=== PATIENT | female | born 1970 | race Caucasian/White ===

== ENCOUNTER → 2019-08-17 | Outpatient (CLI) | payer OTHER ==
[2019-08-17 10:06] LABS: HCT 44.2 % (34.0-46.0); HGB 14.5 gm/dL (11.4-16.0); MCH 29.9 pg (25.0-35.0); MCHC 32.9 g/dL (31.0-37.0); Mean Platelet Volume 8.6; Platelet Count 258 k/uL (150-450); RBC 4.86 m/uL (3.80-5.40); RDW 12.7 % (11.5-15.5); WBC 7.6 k/uL (3.8-10.6)
[2019-08-17 10:14] LABS: INR 0.9 (<1.2); Partial Thromboplastin Time 24.5 sec (22.0-30.0); Prothrombin Time 9.9 sec (9.0-12.0)
[2019-08-17 10:20] LABS: ALT 38 U/L (4-34); AST 30 U/L (14-36); African American GFR (CKD) >90 (>60 ml/min/1.73 sqM); Albumin 4.6 g/dL (3.5-5.0); Alkaline Phosphatase 99 U/L (38-126); Anion Gap 9 mmol/L; Blood Urea Nitrogen 15 mg/dL (7-17); Calcium 10.9 mg/dL (8.4-10.2); Carbon Dioxide 28 mmol/L (22-30); Chloride 103 mmol/L (98-107); Glucose 84 mg/dL (74-99); Non-African American GFR(CKD) 83 (>60 ml/min/1.73 sqM); Potassium 4.5 mmol/L (3.5-5.1); Sodium 140 mmol/L (137-145); Total Bilirubin 0.6 mg/dL (0.2-1.3); Total Protein 7.7 g/dL (6.3-8.2)
[2019-08-17 10:44] LABS: Appearance,Urine Clear (Clear); Bilirubin,Urine Negative (Negative); Blood,Urine Negative (Negative); Color,Urine Light Yellow; Glucose,Urine (UA) Negative (Negative); Ketones,Urine Negative (Negative); Leukocyte Esterase,Urine Negative (Negative); Nitrite,Urine Negative (Negative); Protein,Urine Negative (Negative); Specific Gravity,Urine 1.006 (1.001-1.035); Urobilinogen,Urine <2.0 mg/dL (<2.0)
== END | disposition home or self-care (01) ==
LOC: LABWHC1 08:53
PROVIDERS: ATTEND Orthopaedic Surgery
DX: Z01.818 Encounter for other preprocedural examination (principal); Z01.812 Encounter for preprocedural laboratory examination
CPT/HCPCS: 36415; 80053; 81003; 85027; 85610; 85730; 87070; 93005

== ENCOUNTER 2019-08-25 05:32 | Day surgery (SDC) | payer OTHER ==
[2019-08-18 12:04] VITALS: BMI 29.1
[~2019-08-25 05:32] MED LIST: ACETAMINOPHEN TAB 500 MG TAB PO ONE; GABAPENTIN 300 MG CAP PO ONE; MELOXICAM 7.5 MG TAB PO ONE; TRANEXAMIC ACID 1,000 MG in SODIUM CHLORIDE 0.9% 100 ML IVPB ONE
[2019-08-25] MEDS ORDERED: ROPIVACAINE 246.25 MG, EPINEPHrine 0.5 MG, KETOROLAC 30 MG, cloNIDine HCL/PF 80 MCG, WA... MISCELLANE ONE ×5 (06:00)
[2019-08-25] MEDS ORDERED: ONDANSETRON 4 MG/2 ML VIAL IVP ONE (06:20)
[2019-08-25] MEDS ORDERED: LACTATED RINGERS 1,000 ML IV ONE ×2 (06:20→08:00)
[2019-08-25] MEDS ORDERED: SCOPOLAMINE 1.5MG/72HR PATCH TRANSDERM ONE (06:20)
[2019-08-25] MEDS ORDERED: DEXAMETHASONE SOD PHOSPHATE 10 MG/ML 1 ML VIAL IV ONE (06:20)
[2019-08-25] MEDS ORDERED: LIDOCAINE 1% 20 ML VIAL (10MG/ML) FOR IV START INTRADERMA ONE (06:20)
[2019-08-25] MEDS ORDERED: NALOXONE 0.4 MG/ML 1 ML VIAL IV PRN (06:53)
[2019-08-25] MEDS ORDERED: HYDROmorphone 1 MG/ML 1 ML SYRINGE IVP PRN (06:53)
[2019-08-25] MEDS ORDERED: MAGNESIUM HYDROXIDE 2,400 MG/10 ML CUP PO PRN (06:53)
[2019-08-25] MEDS ORDERED: HYDROmorphone 0.5 MG/0.5 ML SYRINGE IVP PRN ×2 (06:53)
[2019-08-25] MEDS ORDERED: ONDANSETRON 4 MG/2 ML VIAL IVP PRN (06:53)
[2019-08-25] MEDS ORDERED: HYDROcodone/APAP 5-325MG 1 EACH TAB PO PRN (06:53)
[2019-08-25] MEDS ORDERED: DIAZEPAM 5 MG TAB PO PRN (06:53)
[2019-08-25] MEDS ORDERED: HEPARIN SODIUM,PORCINE 10,000 UNIT/ML 1 ML VIAL ONE (06:54)
[2019-08-25] MEDS ORDERED: ePHEDrine SULFATE/0.9% NACL/PF 50 MG/5 ML SYRINGE IV ONE (06:54)
[2019-08-25] MEDS ORDERED: PROPOFOL 10 MG/ML 20 ML VIAL IV ONE (06:54)
[2019-08-25] MEDS ORDERED: SODIUM CHLORIDE 0.9% IRRIG 1,000 ML BTL IRRIGATION ONE (06:54)
[2019-08-25] MEDS ORDERED: SODIUM CHLORIDE 0.9% 100 ML BAG ONE (06:54)
[2019-08-25] MEDS ORDERED: MIDAZOLAM 2 MG/2 ML VIAL ONE (06:54)
[2019-08-25] MEDS ORDERED: TRANEXAMIC ACID 1,000 MG/10 ML VIAL ONE (06:54)
[2019-08-25] MEDS ORDERED: fentaNYL (PF) 50 MCG/ML 2 ML AMP ONE (06:54)
[2019-08-25] MEDS ORDERED: MIDAZOLAM 2 MG/2 ML VIAL IV ONE (07:00)
[2019-08-25] MEDS ORDERED: ceFAZolin 3,000 MG in SODIUM CHLORIDE 0.9% IRRIGATIO 3,000 ML IRRIGATION ONE (07:35)
--- NOTE | 2019-08-25 08:28 | P.OP ---
Date of Procedure: 08/25/19 Preoperative Diagnosis: Severe osteoarthritis left hip Postoperative Diagnosis: Severe osteoarthritis left hip Procedure(s) Performed: Left total hip arthroplasty with a direct anterior approach Implants: Pearl and nephew Polarstem size 3 standard Pearl & Nephew R3, 3 hole acetabular shell, 52 mm Pearl & Nephew reflection 6.5 mm cancellus screw, 20 mm 2 Pearl & Nephew R3, XLPE 20 acetabular liner Pearl & Nephew Oxinium femoral head 36 m, +0 All components were press-fit. The articulation is Oxinium on polyethylene. Anesthesia: spinal Surgeon: Howard Guzman Machine Tool Operator #1: Sharon Lemons Estimated Blood Loss (ml): 150 Pathology: other (Femoral head) Condition: stable Disposition: PACU Indications for Procedure: After failure of conservative treatment we discussed the surgical and nonsurgical treatment options at length. Patient wishes to proceed with a total hip arthroplasty with a direct anterior approach. Complications specific to this procedure were discussed at length, including but not limited to infection, leg length discrepancy, dislocation, and nerve injury. Patient is aware of all these complications and informed consent was obtained Operative Findings: The operative findings are consistent with severe osteoarthritis of the left hip Description of Procedure: Patient was seen and evaluated in the preoperative area, consent was reviewed, and the surgical site was marked with a skin marker. Patient was then brought to the operating room and given prophylactic antibiotics intravenously. 1 g of Tranexamic acid was also given. A spinal anesthetic was administered by the anesthesia department. The patient was then placed on the [place] table with the bony prominences well-padded. The hip area was then prepped and draped in usual sterile fashion. A universal timeout was then performed, which confirmed the patient's name, surgical site, ALLERGIES, and procedure being performed. Next the incision site was located at 1 cm distal and 1 cm lateral to the anterior superior iliac spine. The skin and subcutaneous tissues were sharply incised. Incision was carefully dissected down to the fascia overlying the tensor fascia kurt muscle. This fascia was then incised in line with the incision. Next, using blunt finger dissection, the tensor fascia kurt muscle was dissected off its investing fascia. The muscle was then carefully retracted laterally with a cobra retractor over the lateral neck of the femur. Next, the circumflex vessels were identified and cauterized using the AquaMantis device. The anterior hip capsule was then exposed. The capsule was then opened and an inverted T fashion. Cobra retractors were then placed intracapsularly. The proximal femur was then visualized. The femoral neck was then osteotomized appropriate level above the lesser trochanter. Small amount of traction was placed with the [place] table. A small wedge of bone was then removed from the remaining femoral head. Next, using a corkscrew femoral head was easily removed from the acetabulum. On gross visual inspection, the femoral head had complete loss of articular cartilage in multiple periarticular osteophytes. Attention was then turned to the acetabulum. the acetabulum was exposed and any remaining labrum was excised. Sequential reaming of the acetabulum was performed using fluoroscopic guidance. When the appropriate size was reached, a trial was then placed. The position and fit of the trial was checked with fluoroscopy. The trial was then removed. Then, using fluoroscopic guidance, the final implant was impacted at 20 of anteversion and 40 of abduction, and fully seated in the acetabulum. 2 screws were then placed in the acetabulum. Again fluoroscopy was used to check position of the screws. Next, the liner was then impacted, with a 20 elevated liner located in the anterior superior quadrant. Component locking was confirmed. Attention was then directed to the femur. With the aid of the [place] table, the femur was externally rotated to approximately 130, extended, and abducted under the opposite leg. A side hook was then placed under the proximal femur, and the side hook elevator was used to elevate the proximal femur. Retractors were then placed. A capsular release was performed, as well as a release of the conjoined tendon, which afforded excellent visualization of the proximal femur. Next, a box osteotome was used to lateralize the proximal femur. A deckhand engineer was then used to locate the femoral canal. Sequential broaching was then performed with appropriate size which afforded excellent fixation in the proximal femur. A trial was then placed with appropriate head and neck, and the hip was gently reduced with the aid of the [place] table. Fluoroscopy was then used to check position of the components, as well as to ensure equal leg lengths. The hip was then gently dislocated and the trials were then removed. Final implants were then impacted and the hip was again reduced. Final fluoroscopic x-rays confirmed that the components were in anatomic position, as well as equal leg lengths. The hip was also taken through range of motion, and found to be s table. The hip was then copiously irrigated with antibiotic solution with pulsatile lavage. The hip was then irrigated with Irrisept solution. The soft tissues were then injected with a ropivacaine solution, which consisted of 246.25 mg of ropivacaine, 0.5 mg of epinephrine, 30 mg of Toradol, 80 g of clonidine, and 48.45 mL of sterile water, for a total of 100 mL of fluid injected. A second d ose of 1 g of Tranexamic acid was also given. the fascia was then closed with 2-0 strata fix suture. The subcutaneous tissue was closed with 3-0 Vicryl. The subcuticular tissue was closed with 3-0 strata fix suture. The skin was then closed with Dermabond glue and a sterile silver dressing. The patient was then transferred to the recovery room in stable condition. The equity sales assistant BRITTANY Valadez was required due to the complexity of surgery, and the need for skilled surgical oncologist for positioning, draping, exposure, retraction, and closure of the wound.
--- NOTE | 2019-08-25 08:48 | FL ---
Fluoroscopy HISTORY: Anterior hip replacement 33 seconds fluoroscopy time supplied to the referring clinician. 2 intraoperative C-arm images docum ent the procedure. See dictated report from orthopedic surgery.
--- NOTE | 2019-08-25 08:50 | XR ---
Limited left hip HISTORY: Anterior hip placement 2 intraoperative C-arm images document the procedure.
--- NOTE | 2019-08-25 09:19 | XR ---
Limited left hip HISTORY: Status post left hip arthroplasty Single frontal view of the left hip Patient is status post left hip arthroplasty. There is anatomic alignment. Lucency is present in the soft tissues. IMPRESSION: Orthopedic follow-up.
[2019-08-25] MEDS: hydrOXYzine PAMOATE 25 MG CAP PO PRN (10:34)
[2019-08-25] MEDS: HYDROcodone/APAP 5-325MG 1 EACH TAB PO PRN ×2 (10:34→20:09)
[2019-08-25] MEDS: SODIUM CHLORIDE 0.9% 1,000 ML IV SCH ×2 (18:12→20:10)
[2019-08-25] MEDS: ASPIRIN 325 MG TAB PO SCH (20:09)
[2019-08-25] MEDS ORDERED: SENNOSIDES-DOCUSATE SODIUM 1 EACH TAB PO SCH (21:00)
--- NOTE | 2019-08-25 22:01 | P.CONS ---
History of Present Illness - Reason for Consult Consult date: 08/25/19 Medical management of hypertension and other medical problems - Chief Complaint Admitted for left total arthroplasty - History of Present Illness Patient is a 49-year-old female with a known history of hypertension, osteoarthritis and history of renal stones removed on the right side and anxiety and also history of smoking was admitted to the hospital for elective left total hip arthroplasty due to worsening pain and failed conservative management. Patient says that her pain is better controlled with medications. No complaints of chest pain or shortness of breath. No nausea vomiting or abdominal pain. Patient is currently hypotensive likely due to narcotic pain medication use. Blood pressure medications will be held at this time. Patient has been afebrile. No headache or dizziness or lightheadedness. Review of Systems Constitutional: Patient denies any fever or chills . No generalized weakness or weight loss. Abdomen: Patient denied nausea vomiting and diarrhea and abdominal pain. Cardiovascular: Patient denies any chest pain or short of breath no palpitations. Respiratory: patient denied any cough is from production. No shortness of breath Neurologic: Patient denied any numbness or tingling headache. Musculoskeletal: Patient denies any complaints of joint swelling or deformity. Skin: Negative Psychiatric: Negative Endocrine: No heat or cold intolerance. No recent weight gain. Genitourinary: No dysuria or hematuria. All other 14 point ROS negative except the above Past Medical History Past Medical History: Hypertension, Osteoarthritis (OA) Additional Past Medical History / Comment(s): KIDNEY STONES History of Any Multi-Drug Resistant Organisms: None Reported Past Surgical History: Tubal Ligation Additional Past Surgical History / Comment(s): LAPAROSCOPY X 2. KIDNEY STONES REMOVED RT SIDE. LT SALIVA GLAND REMOVED Past Anesthesia/Blood Transfusion Reactions: Postoperative Nausea & Vomiting (PONV) Past Psychological History: Anxiety Additional Psychological History / Comment(s): PAST TREATMENT-NO PROBLEMS AT THIS TIME Smoking Status: Former smoker Past Alcohol Use History: Occasional Additional Past Alcohol Use History / Comment(s): QUIT SMOKING 2004 Past Drug Use History: None Reported - Past Family History Mother Family Medical History: Diabetes Mellitus, Thyroid Disorder Father Family Medical History: Coronary Artery Disease (CAD) Medications and Allergies Home Medications Medication Instructions Recorded Confirmed Type Acetaminophen [Tylenol Arthritis] 1,300 mg PO DAILY 08/18/19 08/18/19 History Atenolol [Tenormin] 50 mg PO DAILY 08/18/19 08/18/19 History Aspirin 325 mg PO BID #60 tab 08/25/19 Rx Sennosides [Senokot] 2 tab PO DAILY PRN #60 tablet 08/25/19 Rx Allergies Allergy/AdvReac Type Severity Reaction Status Date / Time No Known Allergies Allergy Verified 08/18/19 11:58 Physical Exam Vitals: Vital Signs Temp Pulse Resp BP Pulse Ox 08/25/19 09:07 95 16 109/65 96 08/25/19 08:50 66 18 108/70 97 08/25/19 08:37 98.7 F 70 16 98/74 96 08/25/19 06:20 97.7 F 62 16 136/87 98 Intake and Output 08/24/19 08/25/19 08/25/19 22:59 06:59 14:59 Intake Total 200 1151 Output Total 150 Balance 200 1001 Intake: IV 200 1151 Output: Estimated Blood Loss 150 Other: Weight 84.3 kg 84.3 kg PHYSICAL EXAMINATION: Patient is lying in the bed comfortably, no acute distress, awake alert and oriented.. HEENT: Normocephalic. Neck is supple. Pupils reactive. Nostrils clear. Oral cavity is moist. Ears reveal no drainage. Neck reveals no JVD, carotid bruits, or thyromegaly. CHEST EXAMINATION: Trachea is central. Symmetrical expansion. Bibasilar diminished air entry. Lung lynch clear to auscultation and percussion. CARDIAC: Normal S1, S2 with no gallops. No murmurs ABDOMEN: Soft. Bowel sounds normal. No organomegaly. No abdominal bruits. Extremities: reveal no edema. No clubbing or cyanosis Neurologically awake, alert, oriented x3 with well-coordinated movements. No focal deficits noted Skin: No rash or skin lesions. Psychiatric: Coperative. Nonsuicidal Musculoskeletal: No joint swelling or deformity. Normal range of motion. Left hip surgical site is intact. Assessment and Plan Assessment: Left total hip of the plasty with direct anterior approach. Postoperative day 0 Hypertension. Patient does take atenolol at home. Currently on hold due to hypotension Osteoarthritis History of renal stones on the right side removed Anxiety Previous history of smoking DVT prophylaxis Plan: Patient will be continued on current pain management and try to limit narcotic pain medications. Continue with incentive spirometry and encourage ambulation and PT OT. Blood pressure medications will be held today. Otherwise continue the home medications and will follow up closely. Further recommendations based on the clinical course. Time with Patient: Greater than 30
[2019-08-26] MEDS: hydrOXYzine PAMOATE 25 MG CAP PO PRN ×2 (02:07→07:19)
[2019-08-26] MEDS: HYDROcodone/APAP 5-325MG 1 EACH TAB PO PRN ×2 (02:07→07:18)
[2019-08-26 07:14] VITALS: BP 103/70; PULSE 62; RESP 16; TEMP 97.6
[2019-08-26] MEDS: ASPIRIN 325 MG TAB PO SCH (07:19)
[2019-08-26 07:40] LABS: Basophils % (A) 0 %; Eosinophils % (A) 0 %; HCT 32.7 % (34.0-46.0); Lymphocytes # (A) 1.7 k/uL (1.0-4.8); Lymphocytes % (A) 15 %; MCH 31.2 pg (25.0-35.0); MCHC 34.1 g/dL (31.0-37.0); MCV 91.5 fL (80.0-100.0); Mean Platelet Volume 9.3; Monocytes # (A) 0.5 k/uL (0-1.0); Monocytes % (A) 5 %; Neutrophils # (A) 8.5 k/uL (1.3-7.7); Neutrophils % (A) 78 %; Platelet Count 190 k/uL (150-450); RBC 3.58 m/uL (3.80-5.40); RDW 12.6 % (11.5-15.5); WBC 10.9 k/uL (3.8-10.6)
[2019-08-26 07:45] LABS: HGB 11.1 gm/dL (11.4-16.0)
[2019-08-26] MEDS ORDERED: HYDROcodone/APAP 7.5-325MG 1 EACH TAB PO PRN ×2 (08:28)
[2019-08-26] MEDS ORDERED: MELOXICAM 7.5 MG TAB PO SCH (09:00)
[2019-08-26] MEDS ORDERED: ATENOLOL 50 MG TAB PO SCH (09:00)
--- NOTE | 2019-08-26 09:35 | P.DS ---
Providers Expected date of discharge: 08/26/19 Attending physician: Howard Guzman Consults: 08/25/19 06:53 Consult Physician Routine Consulting Provider: Casey Myrick Consult Reason/Comments: medical management Do you want consulting provider notified?: Yes Primary care physician: Deny Salguero MD - Discharge Diagnosis(es) (1) Osteoarthritis of left hip Current Visit: Yes Status: Acute (2) Status post total hip replacement, left Current Visit: Yes Status: Acute Hospital Course: This is a 49-year-old female with known history of degenerative arthritis of the left hip. The patient presents for evaluation. After discussion and consideration patient elects to proceed with total hip arthroplasty. The patient is seen preoperatively by her primary care physician and cleared for surgery. Patient is admitted to [facility] on 08/25/2019 for total hip arthroplasty. The procedures performed without complication or sequelae. The patient is doing well postoperatively. Labs and vital signs are stable on day of discharge. On day of discharge patient's hip incision is healing well. There is minimal erythema. There is no drainage noted at this time. There is minimal soft tissue swelling to the hip and thigh. Patient has full foot and ankle motion without difficulty or pain. Neurovascular status to the left lower extremity is intact. Patient is discharged to home in good condition. Please see med rec for accurate list of home medications. Plan - Discharge Summary Discharge Rx Participant: Yes New Discharge Prescriptions: New Aspirin 325 mg PO BID #60 tab Sennosides [Senokot] 2 tab PO DAILY PRN #60 tablet PRN Reason: Constipation HYDROcodone/APAP 7.5-325MG [[place] 7.5-325] 1 - 2 tab PO Q4-6H PRN #50 tab PRN Reason: Pain No Action Atenolol [Tenormin] 50 mg PO DAILY Acetaminophen [Tylenol Arthritis] 1,300 mg PO DAILY Discharge Medication List Acetaminophen [Tylenol Arthritis] 1,300 mg PO DAILY 08/18/19 [History] Atenolol [Tenormin] 50 mg PO DAILY 08/18/19 [History] Aspirin 325 mg PO BID #60 tab 08/25/19 [Rx] Sennosides [Senokot] 2 tab PO DAILY PRN #60 tablet 08/25/19 [Rx] HYDROcodone/APAP 7.5-325MG [[place] 7.5-325] 1 - 2 tab PO Q4-6H PRN #50 tab 08/26/19 [Rx] Follow up Appointment(s)/Referral(s): Deny Salguero MD [Primary Care Provider] - 1 Week Howard Guzman DO [Doctor of Osteopathic Medicine] - 09/09/19 10:20 am Activity/Diet/Wound Care/Special Instructions: Weightbearing as tolerated with walker. Leave dressing intact. Dressing may be removed by home care nurse or by patient in 10 days. May shower with dressing on. Recommend use of compression stockings daily for at least 2 weeks during the day to help prevent swelling and blood clots. May remove at night before sleeping. Please follow-up with [facility] in 2 weeks and call with any questions or concerns, .
[2019-08-26 09:45] LABS: African American GFR (CKD) >90 (>60 ml/min/1.73 sqM); Anion Gap 5 mmol/L; Blood Urea Nitrogen 14 mg/dL (7-17); Calcium 9.3 mg/dL (8.4-10.2); Carbon Dioxide 24 mmol/L (22-30); Chloride 111 mmol/L (98-107); Glucose 102 mg/dL (74-99); Non-African American GFR(CKD) >90 (>60 ml/min/1.73 sqM); Potassium 4.9 mmol/L (3.5-5.1); Sodium 140 mmol/L (137-145)
--- NOTE | 2019-08-26 14:18 | P.PN ---
Subjective Progress Note Date: 08/26/19 Principal diagnosis: Patient is a 49-year-old female with a known history of hypertension, osteoarthritis and history of renal stones removed on the right side and anxiety and also history of smoking was admitted to the hospital for elective left total hip arthroplasty due to worsening pain and failed conservative management. Patient says that her pain is better controlled with medications. No complaints of chest pain or shortness of breath. No nausea vomiting or abdominal pain. Patient is currently hypotensive likely due to narcotic pain medication use. Blood pressure medications will be held at this time. Patient has been afebrile. No headache or dizziness or lightheadedness. 08/26/2019 Patient is sitting up in the chair with bilateral legs elevated and appears to be in no acute distress. Patient underwent left hip arthroplasty with Dr. Guzman and tolerated well. Patient's surgical site dressing is dry and intact with no increased erythema or swelling noted. Patient has been working with physical therapy and has been up in the room and to the bathroom with no difficulties. Currently working on pain management with nursing staff at this time. Patient denies any chest pain, shortness of breath, or palpitations. Patient is afebrile. Patient denies any nausea or vomiting and has been tolerating diet. Patient's blood pressure medications have been resumed as she normally takes atenolol daily. Vital signs have been within normal limits. Caesar tankgracy is anticipated for discharge today per primary service. Objective - Vital Signs Vital signs: Vital Signs Temp 97.6 F 08/26/19 07:00 Pulse 62 08/26/19 07:00 Resp 16 08/26/19 07:00 BP 103/70 08/26/19 07:00 Pulse Ox 98 08/26/19 07:00 Intake & Output 08/25/19 08/26/19 08/26/19 18:59 06:59 18:59 Intake Total 1151 1080 Output Total 150 Balance 1001 1080 Weight 84.3 kg Intake: IV 1151 Intake, IV Titration 840 Amount Sodium Chloride 0.9% 1, 840 000 ml @ 70 mls/hr IV . [id number] Rx#:[id number] Oral 240 Output: Estimated Blood Loss 150 Other: Voiding Method Bedside Commode # Voids 1 1 - Exam Patient is sitting in the chair comfortably with bilateral legs elevated, no acute distress, awake alert and oriented.. HEENT: Normocephalic. Neck is supple. Pupils reactive. Nostrils clear. Oral cavity is moist. Ears reveal no drainage. Neck reveals no JVD, carotid bruits, or thyromegaly. CHEST EXAMINATION: Trachea is central. Symmetrical expansion. Bibasilar diminished air entry. Lung lynch clear to auscultation and percussion. CARDIAC: Normal S1, S2 with no gallops. No murmurs ABDOMEN: Soft. Bowel sounds normal. No organomegaly. No abdominal bruits. Extremities: reveal no edema. No clubbing or cyanosis Neurologically awake, alert, oriented x3 with well-coordinated movements. No focal deficits noted Skin: No rash or skin lesions. Psychiatric: Cooperative. Non-suicidal Musculoskeletal: No joint swelling or deformity. Normal range of motion. Left hip surgical site dressing is dry and intact with no swelling or erythema noted. - Labs CBC & Chem 7: 08/26/19 06:32 08/26/19 06:32 Labs: Abnormal Lab Results - Last 24 Hours (Table) 08/26/19 08/26/19 Range/Units 06:32 06:32 WBC 10.9 H (3.8-10.6) k/uL RBC 3.58 L (3.80-5.40) m/uL Hgb 11.1 L D (11.4-16.0) gm/dL Hct 32.7 L (34.0-46.0) % Neutrophils # 8.5 H (1.3-7.7) k/uL Chloride 111 H (98-107) mmol/L Glucose 102 H (74-99) mg/dL Assessment and Plan Assessment: Left total hip arthroplasty with direct anterior approach. Postoperative day 1 Hypertension. Patient does take atenolol at home. Blood pressure medications have been resumed Osteoarthritis History of renal stones on the right side removed Anxiety Previous history of smoking DVT prophylaxis Plan: Patient will be continued on current pain management and try to limit narcotic pain medications. Continue with incentive spirometry and encourage ambulation and PT OT. Patient was up working with physical therapy and walking to the bathroom and back and tolerating well. Blood pressure medications has been resumed. Otherwise continue the home medications and will follow up closely. Further recommendations based on the clinical course. Anticipating discharge today per primary service.
== END 2019-08-26 14:36 | disposition home health service (06) ==
LOC: OR 05:32 → 4SSUR 08:37 → EDSTATUS 12:10 → OR 08-26 14:36
PROVIDERS: ATTEND Orthopaedic Surgery
DX: M16.0 Bilateral primary osteoarthritis of hip (principal); I95.9 Hypotension, unspecified; E55.9 Vitamin D deficiency, unspecified; I10 Essential (primary) hypertension; E07.9 Disorder of thyroid, unspecified; K21.9 Gastro-esophageal reflux disease without esophagitis; Z79.899 Other long term (current) drug therapy; Z79.82 Long term (current) use of aspirin; Z97.3 Presence of spectacles and contact lenses; Z98.890 Other specified postprocedural states; Z87.442 Personal history of urinary calculi; Z98.51 Tubal ligation status; F41.9 Anxiety disorder, unspecified; Z91.89 Other specified personal risk factors, not elsewhere classified; Z87.891 Personal history of nicotine dependence; Z83.49 Family history of other endocrine, nutritional and metabolic diseases; Z83.3 Family history of diabetes mellitus; Z82.49 Family history of ischemic heart disease and other diseases of the circulatory system
CPT/HCPCS: 27130; 97116; 97161; 97166; 86891; 86900; 86901; 80048; 85025; 86850; 88300; 73501; C1776; J2250; J0171; J1644; J1100; J0690 ×3; J2405; J3010; J1885; J1170; J2795; J2704; J0735

== ENCOUNTER → 2020-01-29 | Outpatient (CLI) | payer OTHER ==
[2020-01-29 10:33] LABS: HCT 44.5 % (34.0-46.0); HGB 14.7 gm/dL (11.4-16.0); MCH 30.5 pg (25.0-35.0); MCV 92.4 fL (80.0-100.0); Mean Platelet Volume 9.7; Platelet Count 223 k/uL (150-450); RBC 4.81 m/uL (3.80-5.40); WBC 7.9 k/uL (3.8-10.6)
[2020-01-29 10:41] LABS: Partial Thromboplastin Time 24.4 sec (22.0-30.0); Prothrombin Time 10.1 sec (9.0-12.0)
[2020-01-29 10:43] LABS: ALT 21 U/L (4-34); AST 27 U/L (14-36); African American GFR (CKD) >90 (>60 ml/min/1.73 sqM); Albumin 4.7 g/dL (3.5-5.0); Alkaline Phosphatase 101 U/L (38-126); Anion Gap 8 mmol/L; Blood Urea Nitrogen 13 mg/dL (7-17); Calcium 10.3 mg/dL (8.4-10.2); Carbon Dioxide 26 mmol/L (22-30); Chloride 106 mmol/L (98-107); Glucose 89 mg/dL (74-99); Non-African American GFR(CKD) 88 (>60 ml/min/1.73 sqM); Potassium 4.6 mmol/L (3.5-5.1); Sodium 140 mmol/L (137-145); Total Bilirubin 0.5 mg/dL (0.2-1.3); Total Protein 7.6 g/dL (6.3-8.2)
[2020-01-29 11:03] LABS: Appearance,Urine Clear (Clear); Bilirubin,Urine Negative (Negative); Blood,Urine Small (Negative); Color,Urine Yellow; Glucose,Urine (UA) Negative (Negative); Hyaline Casts,Urine 1 /lpf (0-2); Ketones,Urine Negative (Negative); Leukocyte Esterase,Urine Trace (Negative); Mucus,Urine Rare /hpf; Nitrite,Urine Negative (Negative); Protein,Urine Trace (Negative); RBC,Urine 6 /hpf (0-5); Squamous Epithelial Cell,Urine <1 /hpf (0-4); Urobilinogen,Urine <2.0 mg/dL (<2.0); WBC,Urine 8 /hpf (0-5)
== END | disposition home or self-care (01) ==
LOC: LABPAT 09:26
PROVIDERS: ATTEND Orthopaedic Surgery
DX: Z01.818 Encounter for other preprocedural examination (principal); Z01.812 Encounter for preprocedural laboratory examination
CPT/HCPCS: 36415; 80053; 81001; 85027; 85610; 85730; 86850; 86900; 86901; 87070

== ENCOUNTER 2020-02-09 10:28 | Day surgery (SDC) | payer OTHER ==
[2020-02-02 15:51] VITALS: BMI 32.4
[~2020-02-09 10:28] MED LIST changes: +ROPIVACAINE 246.25 MG, EPINEPHrine 0.5 MG, KETOROLAC 30 MG, cloNIDine HCL/PF 80 MCG, WA... MISCELLANE ONE
[2020-02-09] MEDS ORDERED: ACETAMINOPHEN TAB 500 MG TAB ONE (11:02)
[2020-02-09] MEDS ORDERED: ONDANSETRON 4 MG/2 ML VIAL ONE (11:02)
[2020-02-09] MEDS ORDERED: LIDOCAINE 1% (10MG/ML) FOR IV START INTRADERMA ONE (11:08)
[2020-02-09] MEDS: LACTATED RINGERS 1,000 ML IV SCH (11:10)
[2020-02-09] MEDS ORDERED: DEXAMETHASONE SOD PHOSPHATE 10 MG/ML 1 ML VIAL IV ONE (11:11)
[2020-02-09] MEDS ORDERED: NALOXONE 0.4 MG/ML 1 ML VIAL IV PRN ×2 (11:19→11:21)
[2020-02-09] MEDS ORDERED: ONDANSETRON 4 MG/2 ML VIAL IVP PRN (11:19)
[2020-02-09] MEDS ORDERED: HYDROmorphone 1 MG/ML 1 ML SYRINGE IVP PRN (11:21)
[2020-02-09] MEDS ORDERED: diazePAM 5 MG TAB PO PRN (11:21)
[2020-02-09] MEDS ORDERED: HYDROcodone/APAP 5-325MG 1 EACH TAB PO PRN (11:21)
[2020-02-09] MEDS ORDERED: HYDROmorphone 0.5 MG/0.5 ML SYRINGE IVP PRN ×2 (11:21)
[2020-02-09] MEDS ORDERED: MAGNESIUM HYDROXIDE 2,400 MG/10 ML CUP PO PRN (11:21)
[2020-02-09] MEDS ORDERED: HEPARIN SODIUM,PORCINE 10,000 UNIT/ML 1 ML VIAL ONE (12:15)
[2020-02-09] MEDS ORDERED: SODIUM CHLORIDE 0.9% 100 ML BAG ONE (12:15)
[2020-02-09] MEDS ORDERED: MIDAZOLAM 2 MG/2 ML VIAL ONE (12:15)
[2020-02-09] MEDS ORDERED: fentaNYL (PF) 50 MCG/ML 2 ML AMP ONE (12:15)
[2020-02-09] MEDS ORDERED: TRANEXAMIC ACID 1,000 MG/10 ML VIAL ONE (12:15)
[2020-02-09] MEDS ORDERED: SODIUM CHLORIDE 0.9% IRRIG 1,000 ML BTL IRRIGATION ONE (12:15)
[2020-02-09] MEDS ORDERED: ceFAZolin 3,000 MG in SODIUM CHLORIDE 0.9% IRRIGATIO 3,000 ML IRRIGATION ONE (12:18)
[2020-02-09] MEDS ORDERED: LACTATED RINGERS 1,000 ML IV ONE (13:26)
--- NOTE | 2020-02-09 13:26 | P.OP ---
Date of Procedure: 02/09/20 Preoperative Diagnosis: Severe osteoarthritis right hip Postoperative Diagnosis: Severe osteoarthritis right hip Procedure(s) Performed: Right total hip arthroplasty with a direct anterior approach Implants: Pearl and nephew Polarstem size 3 standard Pearl & Nephew R3, 3 hole acetabular shell, 52 mm Pearl [employer] Nephew reflection 6.5 mm cancellus screw, 20 mm 2 Pearl [employer] Nephew R3, XLPE 20 acetabular liner Pearl & Nephew Oxinium femoral head 36 m, +4 All components were press-fit. The articulation is Oxinium on polyethylene. Anesthesia: spinal Surgeon: Howard Guzman Manager [employer] #1: Sharon Lemons Estimated Blood Loss (ml): 100 Pathology: other (Femoral head) Condition: stable Disposition: PACU Indications for Procedure: After failure of conservative treatment we discussed the surgical and nonsurgical treatment options at length. Patient wishes to proceed with a total hip arthroplasty with a direct anterior approach. Complications specific to this procedure were discussed at length, including but not limited to infection, leg length discrepancy, dislocation, and nerve injury. Covid-19 was also discussed at length with the patient, and they are aware of the current policies and procedures. The patient was given the option of delaying surgery, but they elect to proceed knowing these risks. Patient is aware of all these complications and informed consent was obtained Operative Findings: The operative findings are consistent with severe osteoarthritis of the right hip Description of Procedure: Patient was seen and evaluated in the preoperative area, consent was reviewed, and the surgical site was marked with a skin marker. Patient was then brought to the operating room and given prophylactic antibiotics intravenously. 1 g of Tranexamic acid was also given. A spinal anesthetic was administered by the anesthesia department. The patient was then placed on the Raccoon table with the bony prominences well-padded. The hip area was then prepped and draped in usual sterile fashion. A universal timeout was then performed, which confirmed the patient's name, surgical site, ALLERGIES, and procedure being performed. Next the incision site was located at 1 cm distal and 1 cm lateral to the anterior superior iliac spine. The skin and subcutaneous tissues were sharply incised. Incision was carefully dissected down to the fascia overlying the tensor fascia kurt muscle. This fascia was then incised in line with the incision. Next, using blunt finger dissection, the tensor fascia kurt muscle was dissected off its investing fascia. The muscle was then carefully retracted laterally with a cobra retractor over the lateral neck of the femur. Next, the circumflex vessels were identified and cauterized using the AquaMantis device. The anterior hip capsule was then exposed. The capsule was then opened and an inverted T fashion. Cobra retractors were then placed intracapsularly. The proximal femur was then visualized. The femoral neck was then osteotomized appropriate level above the lesser trochanter. Small amount of traction was placed with the Raccoon table. A small wedge of bone was then removed from the remaining femoral head. Next, using a corkscrew femoral head was easily removed from the acetabulum. On gross visual inspection, the femoral head had complete loss of articular cartilage in multiple periarticular osteophytes. Attention was then turned to the acetabulum. the acetabulum was exposed and any remaining labrum was excised. Sequential reaming of the acetabulum was performed using fluoroscopic guidance. When the appropriate size was reached, a trial was then placed. The position and fit of the trial was checked with fluoroscopy. The trial was then removed. Then, using fluoroscopic guidance, the final implant was impacted at 20 of anteversion and 40 of abduction, and fully seated in the acetabulum. 2 screws were then placed in the acetabulum. Again fluoroscopy was used to check position of the screws. Next, the liner was then impacted, with a 20 elevated liner located in the anterior superior quadrant. Component locking was confirmed. Attention was then directed to the femur. With the aid of the Raccoon table, the femur was externally rotated to approximately 130, extended, and abducted under the opposite leg. A side hook was then placed under the proximal femur, and the side hook elevator was used to elevate the proximal femur. Retractors were then placed. A capsular release was performed, as well as a release of the conjoined tendon, which afforded excellent visualization of the proximal femur. Next, a box osteotome was used to lateralize the proximal femur. A merchandise stocker was then used to locate the femoral canal. Sequential broaching was then performed with appropriate size which afforded excellent fixation in the proximal femur. A trial was then placed with appropriate head and neck, and the hip was gently reduced with the aid of the Raccoon table. Fluoroscopy was then used to check position of the components, as well as to ensure equal leg lengths. The hip was then gently dislocated and the trials were then removed. Final implants were then impacted and the hip was again reduced. Final fluoroscopic x-rays confirmed that the components were in anatomic position, as well as equal leg lengths. The hip was also taken through range of motion, and found to be stable. The hip was then copiously irrigated with antibiotic solution with pulsatile lavage. The hip was then irrigated with Irrisept solution. The soft tissues were then injected with a ropivacaine solution, which consisted of 246.25 mg of ropivacaine, 0.5 mg of epinephrine, 30 mg of Toradol, 80 g of clonidine, and 48.45 mL of sterile water, for a total of 100 mL of fluid injected. A second dose of 1 g of Tranexamic acid was also given. the fascia was then closed with 2-0 strata fix suture. The subcutaneous tissue was closed with 3-0 Vicryl. The subcuticular tissue was closed with 3-0 strata fix suture. The skin was then closed with Dermabond glue and a sterile silver dressing. The patient was then transferred to the recovery room in stable condition. The purchasing assistant BRITTANY Valadez was required due to the complexity of surgery, and the need for skilled surgical asst for positioning, draping, exposure, retraction, and closure of the wound.
--- NOTE | 2020-02-09 13:46 | XR ---
EXAMINATION TYPE: XR Hip Limited RT DATE OF EXAM: 02/09/2020 COMPARISON: NONE HISTORY: Postop TECHNIQUE: One view submitted. FINDINGS: There is postsurgical change in near anatomic alignment. There is soft tissue edema and emphysema. IMPRESSION: 1. Postoperative change. Appears in near-anatomic alignment.
--- NOTE | 2020-02-09 13:47 | FL ---
EXAMINATION TYPE: FL guidance operating room DATE OF EXAM: 02/09/2020 HISTORY: Fluoroscopy time 39 seconds of fluoroscopy provided. IMPRESSION: 1. Fluoroscopy time.
[2020-02-09] MEDS ORDERED: ONDANSETRON 4 MG/2 ML VIAL IVP ONE (14:10)
[2020-02-09] MEDS ORDERED: HYDROmorphone 1 MG/ML 1 ML SYRINGE IVP ONE ×2 (14:13→15:37)
--- NOTE | 2020-02-09 16:14 | P.CONS ---
History of Present Illness - Reason for Consult Consult date: 02/09/20 Medical management - Chief Complaint Right hip posterior arthritis - History of Present Illness This is a 50-year-old female with past medical history noted below significant for severe osteoarthritis of the right hip that failed outpatient management. Patient was admitted to the hospital for elective total right hip arthroplasty. She is postoperative day #0. Patient is doing fairly well postoperatively. Pain is well controlled. She does not have any specific concerns or complaints. I was asked to see her for medical management. Review of Systems Review of system: 14 points review of systems were obtained and were negative except to what were mentioned in the HPI. Past Medical History Past Medical History: Hypertension, Osteoarthritis (OA) Additional Past Medical History / Comment(s): hx kidney stones History of Any Multi-Drug Resistant Organisms: None Reported Past Surgical History: Heart Catheterization, Joint Replacement, Tubal Ligation Additional Past Surgical History / Comment(s): LAPAROSCOPY X2, RIGHT KIDNEY STONES, LEFT SALIVA GLAND REMOVED., TOTAL LEFT HIP., STATES HX OF HEART CATH, ECHO & STRESS TEST IN [place] ABOUT 13 YEARS AGO-STATES NEGATIVE Past Anesthesia/Blood Transfusion Reactions: Motion Sickness, Postoperative Nausea & Vomiting (PONV) Past Psychological History: Anxiety Smoking Status: Former smoker Past Alcohol Use History: Occasional Additional Past Alcohol Use History / Comment(s): QUIT SMOKING 2004, STARTED SMOKING IN HER ', SMOKED APPROX 15 YEARS. Past Drug Use History: None Reported - Past Family History Mother Family Medical History: Diabetes Mellitus, Thyroid Disorder Father Family Medical History: Coronary Artery Disease (CAD) Medications and Allergies Home Medications Medication Instructions Recorded Confirmed Type Atenolol [Tenormin] 50 mg PO DAILY 08/18/19 02/09/20 History Acetaminophen [Tylenol] 650 mg PO DIRECTED 02/02/20 02/09/20 History Aspirin [Adult Low Dose Aspirin EC] 81 mg PO DAILY 02/02/20 02/09/20 History Allergies Allergy/AdvReac Type Severity Reaction Status Date / Time No Known Allergies Allergy Verified 02/09/20 10:58 Physical Exam Vitals: Vital Signs Temp Pulse Pulse Resp BP BP Pulse Ox 02/09/20 16:10 97.5 F L 57 L 16 116/78 99 02/09/20 15:15 52 L 17 122/73 99 02/09/20 14:45 50 L 16 107/65 97 02/09/20 14:30 54 L 16 96/65 99 02/09/20 14:15 58 L 17 102/66 99 02/09/20 14:00 63 16 99/52 100 02/09/20 13:49 97 F L 66 16 95/58 97 02/09/20 11:07 97.0 F L 58 L 16 138/77 100 Intake and Output 02/09/20 02/09/20 02/09/20 06:59 14:59 22:59 Intake Total 1851 Output Total 100 Balance 1751 Intake: IV 1851 Output: Estimated Blood Loss 100 Other: Weight 87.9 kg General: The patient is awake and alert, in no distress Eye: there is normal conjunctiva bilaterally. Neck: The neck is supple, there is no JVD. Cardiovascular: Normal S1-S2, no S3-S4, no murmurs. Respiratory: Lungs clear to auscultation bilaterally Gastrointestinal: Abdomen is soft, nontender Musculoskeletal: There is no pedal edema. Neurological:. Speech is normal. Skin: Skin is warm and dry Assessment and Plan Assessment: 1. Postoperative day #0 status post total right hip arthroplasty. Postoperative care and pain control per orthopedic surgery. 2. DVT prophylaxis: Currently on full dose aspirin twice daily per orthopedic protocol 3. Essential hypertension: Blood pressure within acceptable range. Given tachycardia and heart rate in the 50s I would hold her home dose of atenolol. He to monitor blood pressure and heart rate. Patient said that she was having discussion with her PCP to take her off of her blood pressure medication.
[2020-02-09] MEDS: HYDROcodone/APAP 5-325MG 1 EACH TAB PO PRN ×2 (17:14→23:32)
[2020-02-09] MEDS: SODIUM CHLORIDE 0.9% 1,000 ML IV SCH (17:15)
[2020-02-09] MEDS: ASPIRIN 325 MG TAB PO SCH (20:25)
[2020-02-09] MEDS ORDERED: SENNOSIDES-DOCUSATE SODIUM 1 EACH TAB PO SCH (21:00)
[2020-02-09] MEDS: hydrOXYzine pamoate 25 MG CAP PO PRN (23:32)
[2020-02-10] MEDS: SODIUM CHLORIDE 0.9% 1,000 ML IV SCH ×2 (04:47→07:05)
[2020-02-10] MEDS: HYDROcodone/APAP 5-325MG 1 EACH TAB PO PRN (05:43)
[2020-02-10] MEDS: hydrOXYzine pamoate 25 MG CAP PO PRN (05:44)
[2020-02-10] MEDS: LACTATED RINGERS 1,000 ML IV SCH (05:45)
[2020-02-10] MEDS: ASPIRIN 325 MG TAB PO SCH (08:51)
[2020-02-10] MEDS ORDERED: MELOXICAM 7.5 MG TAB PO SCH (09:00)
--- NOTE | 2020-02-10 09:18 | P.DS ---
Providers Expected date of discharge: 02/10/20 Attending physician: Howard Guzman Consults: 02/09/20 11:21 Consult Physician Routine Consulting Provider: Cj Smith Consult Reason/Comments: medical management Do you want consulting provider notified?: Yes Primary care physician: Stated None - Discharge Diagnosis(es) (1) Osteoarthritis of right hip Current Visit: Yes Status: Acute (2) S/P total hip arthroplasty Current Visit: Yes Status: Acute Hospital Course: This is a 50-year-old female with known history of degenerative arthritis of the right hip. The patient presents for evaluation. After discussion and consideration patient elects to proceed with total hip arthroplasty. The patient is seen preoperatively by Dr. Guzman and medically cleared for surgery by their primary care physician. Patient is admitted to [facility] on 02/09/2020 for total hip arthroplasty. The procedures performed without complication or sequelae. The patient is doing well postoperatively. Labs and vital signs are stable on day of discharge. On day of discharge patient's hip incision is healing well. There is minimal erythema. There is no drainage noted at this time. There is minimal soft tissue swelling to the hip and thigh. Patient has full foot and ankle motion without difficulty or pain. Calf is soft and nontender to palpation. Neurovascular status to the right lower extremity is intact. Patient is discharged home in good condition. Opioid start talking form is reviewed and signed at patient bedside. Please see med rec for accurate list of home medications. Plan - Discharge Summary Discharge Rx Participant: Yes New Discharge Prescriptions: New Aspirin 325 mg PO BID #60 tab HYDROcodone/APAP 5-325MG [Scobey 5-325] 1 - 2 tab PO Q6HR PRN #48 tab PRN Reason: Pain Sennosides [Senokot] 2 tab PO DAILY PRN #60 tablet PRN Reason: Constipation hydrOXYzine PAMOATE [Vistaril] 25 mg PO Q6H PRN #30 capsule PRN Reason: Pain No Action Atenolol [Tenormin] 50 mg PO DAILY Aspirin [Adult Low Dose Aspirin EC] 81 mg PO DAILY Acetaminophen [Tylenol] 650 mg PO DIRECTED Discharge Medication List Atenolol [Tenormin] 50 mg PO DAILY 08/18/19 [History] Acetaminophen [Tylenol] 650 mg PO DIRECTED 02/02/20 [History] Aspirin [Adult Low Dose Aspirin EC] 81 mg PO DAILY 02/02/20 [History] Aspirin 325 mg PO BID #60 tab 02/10/20 [Rx] HYDROcodone/APAP 5-325MG [Scobey 5-325] 1 - 2 tab PO Q6HR PRN #48 tab 02/10/20 [Rx] Sennosides [Senokot] 2 tab PO DAILY PRN #60 tablet 02/10/20 [Rx] hydrOXYzine PAMOATE [Vistaril] 25 mg PO Q6H PRN #30 capsule 02/10/20 [Rx] Follow up Appointment(s)/Referral(s): Howard Guzman DO [Doctor of Osteopathic Medicine] - 2 Weeks Activity/Diet/Wound Care/Special Instructions: Weightbearing as tolerated with walker. Leave dressing intact. Dressing may be removed by home care nurse or by patient in 10 days. May shower with dressing on. Recommend use of compression stockings daily until follow up to help prevent swelling and blood clots. May remove at night before sleeping. Please follow-up with [facility] in 2 weeks and call with any questions or concerns, . Discharge Disposition: HOME WITH HOME HEALTH SERVICES
[2020-02-10 09:52] LABS: ALT 21 U/L (4-34); AST 38 U/L (14-36); African American GFR (CKD) >90 (>60 ml/min/1.73 sqM); Albumin 3.7 g/dL (3.5-5.0); Alkaline Phosphatase 85 U/L (38-126); Anion Gap 6 mmol/L; Blood Urea Nitrogen 13 mg/dL (7-17); Carbon Dioxide 23 mmol/L (22-30); Chloride 109 mmol/L (98-107); Glucose 210 mg/dL (74-99); Non-African American GFR(CKD) >90 (>60 ml/min/1.73 sqM); Potassium 4.4 mmol/L (3.5-5.1); Sodium 138 mmol/L (137-145); Total Bilirubin 0.6 mg/dL (0.2-1.3); Total Protein 6.1 g/dL (6.3-8.2)
[2020-02-10 10:34] LABS: Basophils % (A) 0 %; Eosinophils # (A) 0.1 k/uL (0-0.7); Eosinophils % (A) 0 %; HCT 40.3 % (34.0-46.0); HGB 13.5 gm/dL (11.4-16.0); Lymphocytes # (A) 1.5 k/uL (1.0-4.8); Lymphocytes % (A) 9 %; MCH 32.1 pg (25.0-35.0); MCHC 33.6 g/dL (31.0-37.0); MCV 95.6 fL (80.0-100.0); Mean Platelet Volume 9.8; Monocytes # (A) 0.4 k/uL (0-1.0); Monocytes % (A) 2 %; Neutrophils # (A) 13.7 k/uL (1.3-7.7); Neutrophils % (A) 88 %; Platelet Count 201 k/uL (150-450); RBC 4.21 m/uL (3.80-5.40); RDW 12.9 % (11.5-15.5); WBC 15.7 k/uL (3.8-10.6)
[2020-02-10] MEDS ORDERED: hydrOXYzine HCL 25 MG TAB ONE (11:50)
[2020-02-10] MEDS ORDERED: HYDROcodone/APAP 5-325MG 1 EACH TAB ONE (11:50)
--- NOTE | 2020-02-10 12:24 | P.PN ---
Subjective Progress Note Date: 02/10/20 (delayed charting seen at 10am) Principal diagnosis: right hip pain Patient is a 50-year-old female with a history of hypertension, osteoarthritis, and prior kidney stones who presented for elective right total hip arthroplasty. Patient seen and examined at bedside. She denies any chest pain, shortness of breath, nausea, vomiting, or constipation. She is feeling well. She is not having any lightheadedness or dizziness. She has walked with therapy and pain is well controlled. Objective - Vital Signs Vital signs: Vital Signs Temp 98.0 F 02/10/20 07:00 Pulse 55 L 02/10/20 07:00 Resp 16 02/10/20 07:00 BP 101/65 02/10/20 07:00 Pulse Ox 94 L 02/10/20 07:00 Intake & Output 02/09/20 02/10/20 02/10/20 18:59 06:59 18:59 Intake Total 1851 340 Output Total 100 Balance 1751 340 Weight 87.9 kg Intake: IV 1851 Oral 340 Output: Estimated Blood Loss 100 Other: # Voids 3 - Exam General: non toxic, no distress, appears at stated age Derm: warm, dry Head: atraumatic, normocephalic, symmetric Eyes: EOMI, no lid lag, anicteric sclera Mouth: no lip lesion, mucus membranes moist Cardiovascular: S1S2 reg, no murmur, positive posterior tibial pulse bilateral, Lungs: CTA bilateral, no rhonchi, no rales , no accessory muscle use Abdominal: soft, nontender to palpation, no guarding, no appreciable organomegaly Ext: no gross muscle atrophy, no edema, no contractures Neuro: CN II-XI grossly intact, no focal neuro deficits Psych: Alert, oriented, appropriate affect - Labs CBC & Chem 7: 02/10/20 09:24 02/10/20 09:19 Labs: Abnormal Lab Results - Last 24 Hours (Table) 02/10/20 02/10/20 Range/Units 09:19 09:24 WBC 15.7 H (3.8-10.6) k/uL Neutrophils # 13.7 H (1.3-7.7) k/uL Chloride 109 H (98-107) mmol/L Glucose 210 H (74-99) mg/dL AST 38 H (14-36) U/L Total Protein 6.1 L (6.3-8.2) g/dL TSH 0.349 L (0.465-4.680) mIU/L Assessment and Plan Assessment: Hypertension, controlled -Patient to resume atenolol in the morning -Outpatient follow-up with her primary care physician for further directions Sinus bradycardia -TSH is low and not high. Not consistent with hypothyroidism -Suspect chronic in nature or in conjunction with anesthesia/pain medications leukocytosis, reactive - no need for further testing Status post right hip total arthroplasty -Pain management per orthopedic services Medically stable for discharge
[2020-02-10 12:50] LABS: T4, Free (Free Thyroxine) 0.96 ng/dL (0.78-2.19)
[2020-02-12 04:47] VITALS: BP 101/65; PULSE 55; RESP 16; TEMP 98
== END 2020-02-10 13:29 | disposition home health service (06) ==
LOC: OR 10:28 → 4SSUR 15:10 → OR 02-10 13:29
PROVIDERS: ATTEND Orthopaedic Surgery
DX: M16.11 Unilateral primary osteoarthritis, right hip (principal); R00.1 Bradycardia, unspecified; D72.829 Elevated white blood cell count, unspecified; F41.9 Anxiety disorder, unspecified; I10 Essential (primary) hypertension; Z96.642 Presence of left artificial hip joint; Z79.891 Long term (current) use of opiate analgesic; Z79.899 Other long term (current) drug therapy; Z97.3 Presence of spectacles and contact lenses; Z87.442 Personal history of urinary calculi; Z98.51 Tubal ligation status; Z98.890 Other specified postprocedural states; Z87.891 Personal history of nicotine dependence; Z83.3 Family history of diabetes mellitus; Z83.49 Family history of other endocrine, nutritional and metabolic diseases; Z82.49 Family history of ischemic heart disease and other diseases of the circulatory system
CPT/HCPCS: 27130; 97116; 97161; 97535; 97165; 86891; 86900; 86901; 84439; 80053; 84443; 85025; 86850; 88300; 73501; C1776; J2250; J0171; J1644; J1100; J0690 ×3; J2405; J3010; J1885; J1170 ×2; J2795; J0735

== ENCOUNTER 2023-07-30 12:29 | Emergency (ER) | payer BC, OTHER ==
--- NOTE | 2023-07-30 13:03 | ED ---
Lower Extremity Injury HPI - General Source: patient, RN notes reviewed <Kerry Gaytan - Last Filed: 07/30/23 13:06> <Sammy Lugo - Last Filed: 08/03/23 00:23> - General Stated Complaint: left knee injury-Fall Time Seen by Provider: 07/30/23 13:02 - History of Present Illness Initial Comments: Patient is a 53-year-old female presented ER chief complaint of a fall. Patient states she fell early this morning and is now having right knee shooting pain. Patient also states she has to artificial hips and is having some pelvis pain. Patient denies any other injuries. (Kerry Gaytan) 53-year-old female presenting for evaluation post fall. Patient had a slip and fall in her driveway today. She is now complaining of left knee pain. She is also having pain in the hips, she notes history of bilateral hip replacements. She denies any head injury or loss of consciousness. No other musculoskeletal injuries. No numbness, tingling, weakness. (Sammy Lugo) - Related Data Home Medications Medication Instructions Recorded Confirmed atenoloL [Tenormin] 50 mg PO DAILY 08/18/19 02/09/20 Acetaminophen [Tylenol] 650 mg PO DIRECTED 02/02/20 02/09/20 Aspirin [Adult Low Dose Aspirin EC] 81 mg PO DAILY 02/02/20 02/09/20 Previous Rx's Medication Instructions Recorded Aspirin 325 mg PO BID #60 tab 02/10/20 HYDROcodone/APAP 5-325MG [[place] 1 - 2 tab PO Q6HR PRN #48 tab 02/10/20 5-325] Sennosides [Senokot] 2 tab PO DAILY PRN #60 tablet 02/10/20 hydrOXYzine pamoate [Vistaril] 25 mg PO Q6H PRN #30 capsule 02/10/20 Allergies Allergy/AdvReac Type Severity Reaction Status Date / Time No Known Allergies Allergy Verified 07/30/23 14:01 Review of Systems ROS Other: All systems not noted in ROS Statement are negative. <Kerry Gaytan - Last Filed: 07/30/23 13:06> ROS Other: All systems not noted in ROS Statement are negative. <Sammy Lugo - Last Filed: 08/03/23 00:23> ROS Statement: Those systems with pertinent positive or pertinent negative responses have been documented in the HPI. Past Medical History Past Medical History: Hypertension, Osteoarthritis (OA) Additional Past Medical History / Comment(s): hx kidney stones History of Any Multi-Drug Resistant Organisms: None Reported Past Surgical History: Heart Catheterization, Joint Replacement, Tubal Ligation Additional Past Surgical History / Comment(s): LAPAROSCOPY X2, RIGHT KIDNEY S TONES, LEFT SALIVA GLAND REMOVED., TOTAL LEFT HIP., STATES HX OF HEART CATH, ECHO & STRESS TEST IN [place] ABOUT 13 YEARS AGO-STATES NEGATIVE Past Anesthesia/Blood Transfusion Reactions: Motion Sickness, Postoperative Nausea & Vomiting (PONV) Past Psychological History: Anxiety Past Alcohol Use History: Occasional Additional Past Alcohol Use History / Comment(s): QUIT SMOKING 2004, STARTED SMOKING IN HER 20'S, SMOKED APPROX 15 YEARS. Past Drug Use History: None Reported - Past Family History Mother Family Medical History: Diabetes Mellitus, Thyroid Disorder Father Family Medical History: Coronary Artery Disease (CAD) <Kerry Gaytan - Last Filed: 07/30/23 13:06> General Exam <Kerry Gaytan - Last Filed: 07/30/23 13:06> Limitations: no limitations General appearance: alert, in no apparent distress Head exam: Present: atraumatic, normocephalic Eye exam: Present: normal appearance Neck exam: Present: normal inspection Respiratory exam: Absent: respiratory distress Cardiovascular Exam: Present: regular rate Extremities exam: Present: tenderness (left knee). Absent: full ROM Neurological exam: Present: alert, oriented X3 Psychiatric exam: Present: normal affect, normal mood <Sammy Lugo - Last Filed: 08/03/23 00:23> - General Exam Comments Initial Comments: Visual Physical Exam Vital signs reviewed General: Well-appearing, nontoxic, no acute distress. Head: Normocephalic, atraumatic Eyes: PERRLA, EOMI ENT: Airway patent Chest: Nonlabored breathing Skin: No visual rash, normal skin tone Neuro: Alert and oriented 3 Musculoskeletal: No gross abnormalities (Kerry Gaytan) Course Vital Signs 07/30/23 07/30/23 13:59 17:14 Temperature 98.2 F 97.8 F Pulse Rate 68 64 Respiratory 16 18 Rate Blood Pressure 127/85 125/82 O2 Sat by Pulse 99 99 Oximetry Medical Decision Making <Kerry Gaytan - Last Filed: 07/30/23 13:06> <Sammy Lugo - Last Filed: 08/03/23 00:23> - Medical Decision Making I performed the quick note portion of the exam. Electronically signed by Kerry Gaytan PA-C (Kerry Gaytan) Was pt. sent in by a medical professional or institution (BRITTANY Peck, ROSTER CLERK, urgent care, hospital, or senior care...) When possible be specific @ -No Did you speak to anyone other than the patient for history (EMS, parent, family, police, friend...)? What history was obtained from this source @ -No Did you review nursing and triage notes (agree or disagree)? Why? @ -I reviewed and agree with nursing and triage notes Were old charts reviewed (outside hosp., previous admission, EMS record, old EKG, old radiological studies, urgent care reports/EKG's, senior care records)? Report findings @ -No old charts were reviewed Differential Diagnosis (chest pain, altered mental status, abdominal pain women, abdominal pain men, vaginal bleeding, weakness, fever, dyspnea, syncope, headache, dizziness, GI bleed, back pain, seizure, CVA, palpatations, mental health, musculoskeletal)? @ -Differential Musculoskeletal Muscular strain, contusion, ligament sprain, fracture, arthritis, septic ar thritis, bursitis, cellulitis, muscle spasm, nerve compression, DVT, arterial occlusion, herpes zoster, electrolyte abnormality, tumor.... This is not meant to be in all inclusive list EKG interpreted by me (3pts min.). @ -As above X-rays interpreted by me (1pt min.). @ -X-ray show uncomplicated bilateral total hip arthroplasties. No loosening or. Prosthetic fracture seen. No acute osseous abnormality seen of the left knee. CT interpreted by me (1pt min.). @ -None done U/S interpreted by me (1pt. min.). @ -None done What testing was considered but not performed or refused? (CT, X-rays, U/S, labs)? Why? @ -None What meds were considered but not given or refused? Why? @ -None Did you discuss the management of the patient with other professionals (professionals i.e. , PA, ROSTER CLERK, lab, RT, psych nurse, geriatric social work professor, terminal make up operator, teacher, driver license reviewing officer, rn case manager hospice)? Give summary @ -No Was smoking cessation discussed for >3mins.? @ -No Was critical care preformed (if so, how long)? @ -No Were there social determinants of health that impacted care today? How? (Homelessness, low income, unemployed, alcoholism, drug addiction, transportation, low edu. Level, literacy, decrease access to med. care, group home, rehab)? @ -No Was there de-escalation of care discussed even if they declined (Discuss DNR or withdrawal of care, Hospice)? DNR status @ -No What co-morbidities impacted this encounter? (DM, HTN, Smoking, COPD, CAD, Cancer, CVA, ARF, Chemo, Hep., AIDS, mental health diagnosis, sleep apnea, morbid obesity)? @ -None Was patient admitted / discharged? Hospital course, mention meds given and route, prescriptions, significant lab abnormalities, going to OR and other pertinent info. @ -53-year-old female presenting with chief complaint of left knee pain and bilateral hip pain after a fall today. X-rays are negative for acute osseous process. Patient is educated on today's findings and supportive management. Follow-up with your orthopedist. Patient has a walker at home that she will use. Follow-up with PCP. Report back to ER with any new or worsening symptoms. Discussed return parameters and answered all questions. Patient conveyed verbal understanding and agreed to the plan. I discussed this case in detail with my attending Dr. Hernandez Undiagnosed new problem with uncertain prognosis? @ -No Drug Therapy requiring intensive monitoring for toxicity (Heparin, Nitro, Insulin, Cardizem)? @ -No Were any procedures done? @ -No Diagnosis/symptom? @ -Knee sprain Acute, or Chronic, or Acute on Chronic? @ -Acute Uncomplicated (without systemic symptoms) or Complicated (systemic symptoms)? @ -Uncomplicated Side effects of treatment? @ -No Exacerbation, Progression, or Severe Exacerbation? @ -No Poses a threat to life or bodily function? How? (Chest pain, [place], [place], pneumonia, PE, COPD, DKA, ARF, appy, cholecystitis, CVA, Diverticulitis, Homicidal, Suicidal, threat to staff... and all critical care pts) @ -No (Sammy Lugo) Disposition <Kerry Gaytan - Last Filed: 07/30/23 13:06> Is patient prescribed a controlled substance at d/c from ED?: No Time of Disposition: 17:05 <Sammy Lugo - Last Filed: 08/03/23 00:23> Clinical Impression: Knee sprain Disposition: HOME SELF-CARE Condition: Good Instructions (If sedation given, give patient instructions): Knee Sprain (ED) Additional Instructions: Follow-up with PCP. Report back to ER with any new or worsening symptoms. Take Motrin and Tylenol as needed for pain control. Rest, ice, compress, and elevate the knee. Referrals: Preston Portillo MD [Primary Care Provider] - 1-2 days
--- NOTE | 2023-07-30 15:00 | XR ---
EXAMINATION TYPE: XR Hip 2 views Bilateral and AP pelvis DATE OF EXAM: 07/30/2023 COMPARISON: NONE HISTORY: 53-year-old female left-sided hip pain after slip and fall. FINDINGS: There is a transitional lumbosacral segment noted, probably sacralized L5. Some facet arthropathy not ed especially on the left at L4-L5. There are postoperative changes of bilateral total hip arthroplasties. Both acetabular cup and femora l stem components of the prosthesis remain well seated without periprosthetic fracture. SI joints and pubic symphysis appear intact. IMPRESSION: Uncomplicated bilateral total hip arthroplasties. No loosening or periprosthetic fracture seen.
--- NOTE | 2023-07-30 15:01 | XR ---
EXAMINATION TYPE: XR knee complete LT DATE OF EXAM: 07/30/2023 COMPARISON: None HISTORY: 53-year-old female pain after slip and fall TECHNIQUE: AP, oblique, and lateral views FINDINGS: There is mild anterior infrapatellar soft tissue swelling. Extensor mechanism otherwise appears intac t. No significant joint effusion. No acute fracture, subluxation, or dislocation seen. IMPRESSION: No acute osseous abnormality seen.
[2023-07-30] MEDS ORDERED: ACET/COD 300 MG/30 MG STARTER PACK 6 TAB BTL PO STA (17:06)
[2023-07-30 17:40] VITALS: BP 125/82; PULSE 64; RESP 18; TEMP 97.8
== END 2023-07-30 17:15 | disposition home or self-care (01) ==
LOC: EC 12:29
DX: S83.92XA Sprain of unspecified site of left knee, initial encounter (principal); I10 Essential (primary) hypertension; Z86.59 Personal history of other mental and behavioral disorders; Z79.899 Other long term (current) drug therapy; W01.0XXA Fall on same level from slipping, tripping and stumbling without subsequent striking against object, initial encounter
CPT/HCPCS: 73521; 99284